=== PATIENT | female | born 1975 | race African-American/Black ===

== ENCOUNTER 2018-09-12 08:07 | Outpatient (CLI) | payer BC | END 2018-09-12 08:08 | disposition home or self-care (01) | LOC: BICMAMMO 08:07 | PROVIDERS: ATTEND Family Medicine | DX: Z12.31 Encounter for screening mammogram for malignant neoplasm of breast (principal); N63.10 Unspecified lump in the right breast, unspecified quadrant; N63.20 Unspecified lump in the left breast, unspecified quadrant | CPT/HCPCS: 77063; 77067 ==